=== PATIENT | male | born 2000 | race Caucasian/White ===

== ENCOUNTER 2019-08-04 20:31 | Emergency (ER) | payer BC ==
[2019-08-04 20:37] VITALS: BP 125/75; PULSE 71; TEMP 98; BMI 21.7
--- NOTE | 2019-08-04 22:00 | PDOC ---
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 Patient reports while cutting rizwan he accidentally got his thumb in the way of the device causing his finger to be lacerated on the sharp blades. Patient immediately washed his hands and put a dressing on his finger and then came to the emergency department. He reports his primary doctor gave him a tetanus immunization a couple of months ago as he was due at that time. No recent travel or sick contacts. PAST MEDICAL HISTORY: Denies past medical history SURGICAL HISTORY: Denies ALLERGIES: No known drug allergies REVIEW OF SYSTEMS General/Constitutional: Denies fever or chills. Denies weakness, weight change. HEENT: Denies change in vision. Denies ear pain or discharge. Denies sore throat. Cardiovascular: Denies chest pain or shortness of breath. Respiratory: Denies cough, wheezing, or hemoptysis. Gastrointestinal: Denies nausea, vomiting, diarrhea or constipation. Denies rectal bleeding. Genitourinary: Denies dysuria, frequency, or change in urination. Musculoskeletal: Denies joint or muscle swelling or pain. Denies neck or back pain. Skin and breasts: see HPI Neurologic: Denies headache, vertigo, loss of consciousness, or loss of sensation. Psychiatric: Denies depression or anxiety. Endocrine: Denies increased thirst. Denies abnormal weight change. Hematologic/Lymphatic: Denies anemia, easy bleeding, or history of blood clots. Allergic/Immunologic: Denies hives or skin allergy. Denies latex allergy. PHYSICAL EXAM General Appearance: Well-appearing, appropriately dressed. No apparent distress , no intoxication. Musculoskeletal/Extremities: Normal inspection. FROM of all extremities, normal capillary refill. Pelvis Stable. No CVA tenderness. No tenderness to extremities, pedal edema, swelling, erythema or deformity. Laceration to right thumb. Neurovascularly intact Integumentary: Approximate 2 cm superficial linear laceration extending vertically over the palmar aspect of the right thumb across the tip ending distally to the fingernail. No nailbed involvement is noted. Bleeding is well controlled. Past History - Past Medical History Allergies/Adverse Reactions: Allergies Allergy/AdvReac Type Severity Reaction Status Date / Time No Known Allergies Allergy Verified 07/20/16 22:34 COPD: No - Immunization History Immunization Up to Date: Yes - Psycho Social/Smoking Cessation Hx Smoking History: Never smoked Hx Alcohol Use: No Drug/Substance Use Hx: No *Physical Exam - Vital Signs Last Vital Signs Temp Pulse Resp BP Pulse Ox 98.0 F 71 19 125/75 97 08/04/19 20:34 08/04/19 20:34 08/04/19 20:34 08/04/19 20:34 08/04/19 20:34 Procedures - Consent Consent obtained: Verbal, From Patient - Laceration/Wound Repair Right Volar Finger 1st digit Wound Length: to 2.5 cm Wound Explored: clean Wound's Depth, Shape: superficial, linear Irrigated w/ Saline: Yes Betadine Prep: No Wound Debrided: moderate Wound Repaired With: Dermabond Layer Closure: No Sterile Dressing Applied: No Splint Applied: No Progress: 08/04/19 22:04 Patient tolerated well Medical Decision Making - Medical Decision Making 08/04/19 22:00 A/P: 19-year-old male with superficial laceration to right thumb Approximates 2 cm linear superficial laceration present to the palmar aspect of the right thumb extending over the distal tip of the thumb concluding just distal to the fingernail. Bleeding is well controlled Laceration repair-see procedure note for details Tetanus immunization is current Discharge home Discharge - Discharge Information Problems reviewed: Yes Clinical Impression/Diagnosis: Laceration of thumb Qualifiers: Encounter type: initial encounter Damage to nail status: without damage Foreign body presence: without foreign body Laterality: right Qualified Code(s) : S61.011A - Laceration without foreign body of right thumb without damage to nail, initial encounter Condition: Stable Disposition: HOME - Admission No - Follow up/Referral Referrals: Jaren Bautista MD [Primary Care Provider] - - Patient Discharge Instructions Additional Instructions: Rest, no strenuous activity or exercise until glue is dissolved or lifted Wash from the neck down only and avoid hot steamy environment until Dermabond is gone No bathing or swimming until Dermabond is dissolved Avoid peeling away as wound will open Dermabond should be resolved within 3-7 days May use Tylenol or Motrin for pain relief Followup with as needed Return to emergency department for worsening swelling, pain, redness or signs of cellulitis If the wound reopens, may not be reclosed as will be a dirty wound and will need to heal by secondary intention - Post Discharge Activity Work/Back to School Note: Back to Work
== END 2019-08-04 21:52 | disposition home or self-care (01) ==
LOC: JERFT 20:31
PROC: 0HQFXZZ Repair Right Hand Skin, External Approach (ICD-10-PCS; principal; 2019-08-04)
DX: S61.011A Laceration without foreign body of right thumb without damage to nail, initial encounter (principal); W26.0XXA Contact with knife, initial encounter; Y93.G1 Activity, food preparation and clean up; Y92.511 Restaurant or cafe as the place of occurrence of the external cause; Y99.0 Civilian activity done for income or pay
CPT/HCPCS: 99281-25

== ENCOUNTER 2022-07-29 08:57 | Day surgery (SDC) | payer BC ==
[2022-07-28 16:09] VITALS: BMI 25.0
[2022-07-29] MEDS ORDERED: LIDOCAINE HCL 2% 100 MG/5 ML DISP.SYRIN ONE (11:03)
[2022-07-29] MEDS ORDERED: PROPOFOL 40 ML ONE (11:04)
[2022-07-29] MEDS ORDERED: MIDAZOLAM HCL 2 MG/2 ML SINGLE DOSE VIAL ONE (11:05)
[2022-07-29] MEDS ORDERED: BUPIVACAINE HCL 50 ML ONE (11:08)
[2022-07-29] MEDS ORDERED: LIDOCAINE HCL 1%, 10 MG/ML (20ML VIAL) ONE (11:08)
[2022-07-29] MEDS ORDERED: ONDANSETRON 4 MG/2 ML VIAL ONE (11:23)
[2022-07-29] MEDS ORDERED: DEXAMETHASONE SOD PHOSPHATE 4 MG/1 ML VIAL ONE (11:23)
[2022-07-29] MEDS ORDERED: KETOROLAC TROMETHAMINE 30 MG/1 ML VIAL ONE (11:23)
[2022-07-29] MEDS ORDERED: ceFAZolin SODIUM 1 GM VIAL ONE (11:23)
[2022-07-29] MEDS ORDERED: ONDANSETRON 4 MG/2 ML VIAL IVPUSH PRN (12:22)
[2022-07-29] MEDS ORDERED: ACETAMINOPHEN 1000 MG/100 ML BAG IVPB ONE (12:22)
[2022-07-29] MEDS ORDERED: PROMETHAZINE HCL 25 MG/1 ML VIAL IVPUSH PRN (12:22)
[2022-07-29] MEDS ORDERED: oxyCODONE HCL 5 MG TABLET PO PRN ×2 (12:22)
[2022-07-29] MEDS ORDERED: FENTANYL CITRATE/PF 50 MCG/ML VIAL ONE ×4 (12:26→13:15)
[2022-07-29] MEDS ORDERED: LACTATED RINGERS SOLUTION 1,000 ML IV SCH (12:30)
[2022-07-29 13:50] VITALS: RESP 18; TEMP 96.9
[2022-07-29] MEDS ORDERED: oxyCODONE HCL 5 MG TABLET ONE (13:51)
[2022-07-29 14:44] VITALS: BP 130/70; PULSE 63
== END 2022-07-29 14:50 | disposition home or self-care (01) ==
LOC: FASU 08:57
PROVIDERS: ATTEND Orthopaedic Surgery
PROC: 0PSP04Z Reposition Right Metacarpal with Internal Fixation Device, Open Approach (ICD-10-PCS; principal; 2022-07-29 11:35)
DX: S62.326A Displaced fracture of shaft of fifth metacarpal bone, right hand, initial encounter for closed fracture (principal); X58.XXXA Exposure to other specified factors, initial encounter; Y93.9 Activity, unspecified; Y92.9 Unspecified place or not applicable
CPT/HCPCS: 73130-TC-RT-FY

== ENCOUNTER 2024-07-25 07:17 | Emergency (ER) | payer BC ==
[2024-07-25 07:25] VITALS: BP 136/87; PULSE 75; RESP 16; TEMP 97.5; BMI 25.9
[2024-07-25] MEDS ORDERED: KETOROLAC TROMETHAMINE 30 MG/1 ML VIAL ONE (07:57)
[2024-07-25] MEDS: KETOROLAC TROMETHAMINE 30 MG/1 ML VIAL IM ONE (08:01)
== END 2024-07-25 08:42 | disposition home or self-care (01) ==
LOC: JER 07:17 → JERFT 07:17
PROC: 3E0233Z Introduction of Anti-inflammatory into Muscle, Percutaneous Approach (ICD-10-PCS; principal; 2024-07-25)
DX: S30.0XXA Contusion of lower back and pelvis, initial encounter (principal); V28.09XA Other motorcycle driver injured in noncollision transport accident in nontraffic accident, initial encounter; Y92.410 Unspecified street and highway as the place of occurrence of the external cause
CPT/HCPCS: 72220-TC-FY; 99284-25